=== PATIENT | male | born 2000 | race Caucasian/White ===

== ENCOUNTER 2024-05-18 12:59 | Outpatient (CLI) | payer OTHER, SELFPAY ==
--- OUTSIDE RECORDS SUMMARY | 2024-05-18 13:02 | XMS_ITS | Clinical Summary ---
Author Organization [facility] Address [place], [place] [address] Care Team Providers Care Software Performance Engineer Name Role Phone [facility] Primary Care Provider + Allergies No known active allergies Medications Medication Sig Dispensed Refills Start Date End Date Status (u) AUGMENTIN 400-57 MG/5ML RECON RASHI 1 1/2 teaspoon twice daily for 2 weeks QS 0 08/04/2002 Active dextroamphetamine-amp hetamine (ADDERALL) 10 mg tablet Take 10 mg by mouth 07/16/2018 Act efrem dextroamphetamine-amp hetamine (ADDERALL XR) 20 mg Extended-Release capsule Take 20 mg by mouth 07/16/2018 Activ e cetirizine (ZYRTEC) 10 mg tablet Take 10 mg by mouth. 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 SUPERVISOR Respiratory Rate - - Oxygen Saturation 100% 11/30/2018 1:19 PM INSTALLATION SUPERVISOR Inhaled Oxygen Concentration - - Weight 16.8 kg (37 lb) 08/04/2002 12:00 AM CDT Height - - Body Mass Index - - Plan of Treatment Health Maintenance Due Date Last Done Comments Tdap 2010 Depression screening for age 12+ 2011 HIV for age 15-65 2014 HPV series for age 9-26 (1 - Male 3-dose series) 2014 BMI (ht and wt on same day) for age 18+ 2017 Hepatitis C screening for ag e 18-79 2017 Tetanus booster 2019 COVID-19 vaccine series (2022- season) 2023 Influenza for age 9-49 08/01/2024 Pneumococcal series for age 6-64 Aged Out No longer eligible based on patient's age to complete this topic Care Teams Software Performance Engineer Relationship Specialty Start Date End Date [facility] [address] [place] [address] PCP - General 11/30/18
== END 2024-05-18 13:00 | disposition home or self-care (01) ==
PROVIDERS: PCP Nurse Practitioner Family; Visit Provider Nurse Practitioner Family
DX: Z13.228 Encounter for screening for other metabolic disorders (principal); Z13.0 Encounter for screening for diseases of the blood and blood-forming organs and certain disorders involving the immune mechanism
CPT/HCPCS: 80048; 85025

== ENCOUNTER 2024-05-21 09:34 | Day surgery (SDC) | payer OTHER, SELFPAY ==
[2024-05-21] VITALS (15 sets, daily range): BP systolic 117–160; BP diastolic 58–112; PULSE 54–80; RESP 12–16; TEMP 36.1–36.9; O2SAT 93–100; BMI 36.0
--- OUTSIDE RECORDS SUMMARY | 2024-05-21 09:35 | XMS_ITS | Clinical Summary ---
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
[2024-05-21] MEDS: LACTATED RINGERS 1000 ML 1,000 ML 100 ML IV (09:50)
[2024-05-21] MEDS: SODIUM CHLORIDE 0.9 % (FLUSH) 10 ML SYRINGE IVF (09:54)
--- NOTE | 2024-05-21 12:18 | W.ANESCHARGE ---
Anesthesia Charges Start Date/Time Anesthesia Start Date: 05/21/24 Anesthesia Start Time: 11:24 Stop Date/Time Anesthesia Stop Date: 05/21/24 Anesthesia Stop Time: 12:01
[2024-05-21] MEDS: ACETAMINOPHEN 160 MG/5 ML CUP 320 MG PO (12:40)
[2024-05-21] MEDS: IBUPROFEN 100 MG/5 ML SUSP 200 MG PO (12:40)
--- NOTE | 2024-05-21 13:58 | W.PM.ENTPROC ---
Procedure Note Date of procedure: 05/21/24 Procedure: Preoperative diagnosis chronic tonsillitis, adenotonsillar hypertrophy, upper airway obstruction, nasal obstruction Postoperative diagnosis same Procedure adenotonsillectomy Under general endotracheal anesthesia the patient was prepped and draped in usual fashion. The McIvor mouth gag was inserted the tongue retracted forward. No submucous cleft was noted on inspection or palpation. The right and left tonsils were removed with a combination of needlepoint cautery, bipolar cautery and suction cautery. Meticulous hemostasis was achieved. The adenoid pad was visualized with a laryngeal mirror and removed with suction cautery. The patient was extubated in the operating room taken recovery in satisfactory condition. Blood loss was less than 10 mL. Surgeon: Selvin Pak MD
== END 2024-05-21 14:25 | disposition home or self-care (01) ==
PROVIDERS: PCP Nurse Practitioner Family; Visit Provider Otolaryngology
PROC: (CPT 42821; principal; 2024-05-21 10:00)
DX: J35.01 Chronic tonsillitis (principal); J34.89 Other specified disorders of nose and nasal sinuses; J35.3 Hypertrophy of tonsils with hypertrophy of adenoids
CPT/HCPCS: 42821; 00170; 88304; A9270; J0330; J1100; J2250; J2310; J2405; J2704; J3010; J7120